=== PATIENT | male | born 1965 | race Caucasian/White ===

== ENCOUNTER 2020-02-26 15:03 | Emergency (ER) | payer BC ==
[2020-02-26] MEDS ORDERED: Amoxicillin/Potassium Clav 875 MG TAB ONE (15:38)
[2020-02-26] MEDS ORDERED: Boostrix 0.5 ML (Tdap) VIAL ONE (15:39)
[2020-02-26] MEDS ORDERED: Bacitracin 1 PK ONE (15:52)
== END 2020-02-26 16:00 | disposition home or self-care (01) ==
LOC: MADERS 15:03
DX: S61.051A Open bite of right thumb without damage to nail, initial encounter (principal); Z23 Encounter for immunization; I10 Essential (primary) hypertension; Z79.899 Other long term (current) drug therapy; W54.0XXA Bitten by dog, initial encounter
CPT/HCPCS: 12001; 90471; 90715